=== PATIENT | male | born 1980 | race Caucasian/White ===

== ENCOUNTER → 2021-03-06 | Outpatient (CLI) | payer MEDICARE, MEDICAID ==
[~2021-03-06] MED LIST: diatrizoate meglumine 300mg/ml (30%) 300ml UR ONE
== END | disposition home or self-care (01) ==
LOC: RAD 10:01
PROVIDERS: ATTEND Urology
DX: N35.919 Unspecified urethral stricture, male, unspecified site (principal)
CPT/HCPCS: 74455; Q9958

== ENCOUNTER 2022-01-20 12:41 | Outpatient (CLI) | payer MEDICARE, MEDICAID ==
[2022-01-20] MEDS ORDERED: diatrizoate meglumine 300mg/ml (30%) 300ml UR ONE (13:00)
== END 2022-01-20 23:59 | disposition home or self-care (01) ==
LOC: RAD 12:41
PROVIDERS: ATTEND Physician Assistant Medical
DX: R33.9 Retention of urine, unspecified (principal); N13.8 Other obstructive and reflux uropathy; Z93.59 Other cystostomy status
CPT/HCPCS: 74455; Q9958